=== PATIENT | female | born 1965 | race Two or more races ===

== ENCOUNTER → 2017-04-23 | Outpatient (CLI) | payer OTHER ==
[~2017-04-23] MED LIST: AMIT10TA PO; MELO-184 PO
== END | disposition home or self-care (01) ==
LOC: CFH 07:50 → MERGE 08:15
PROVIDERS: ATTEND Family Medicine
DX: Z12.31 Encounter for screening mammogram for malignant neoplasm of breast (principal); Z13.820 Encounter for screening for osteoporosis
CPT/HCPCS: 77080; G0202

== ENCOUNTER 2017-08-25 19:03 | Emergency (ER) | payer OTHER ==
[~2017-08-25] VITALS: Ht 162.6 cm; Wt 60.6 kg
[~2017-08-25 19:03] MED LIST changes: -MELO-184 PO; +MELO15TA24 PO
[2017-08-25] MEDS ORDERED: SODIUM CHLORIDE 0.9% 1,000ML IVBOLUS ONE (20:30)
[2017-08-25] MEDS ORDERED: DIPHENHYDRAMINE 50 MG/ML, 1ML IVPush ONE (20:30)
[2017-08-25] MEDS ORDERED: METHOCARBAMOL 750 MG TABLET PO ONE (20:30)
[2017-08-25] MEDS ORDERED: ONDANSETRON 2MG/ML, 2ML IVPush ONE ×2 (20:30→22:00)
[2017-08-25] MEDS ORDERED: KETOROLAC 30 MG/1 ML IVPush ONE (20:30)
[2017-08-25] MEDS ORDERED: SODIUM CHLORIDE FLUSH 10ML SYR IVF ONE (20:30)
[2017-08-25 20:32] LABS: HEMATOCRIT 44.4 % (34.6-47.8); HEMOGLOBIN 15.2 g/dL (11.7-16.4)
[2017-08-25 20:39] LABS: BLOOD UREA NITROGEN 13 mg/dL (7-18)
[2017-08-25 20:42] LABS: ASPARTATE AMINO TRANSFERASE 23 U/L (15-37)
[2017-08-25] MEDS ORDERED: MAALOX/HYOSCYAMINE/LIDOCAINE 45 ML BTL PO ONE (22:00)
[2017-08-25 23:19] VITALS: BP 100/54
== END 2017-08-25 23:22 | disposition home or self-care (01) ==
LOC: ED 19:51
DX: R51 Headache (principal); G89.29 Other chronic pain; R10.9 Unspecified abdominal pain; H81.10 Benign paroxysmal vertigo, unspecified ear; Z90.49 Acquired absence of other specified parts of digestive tract; Z90.710 Acquired absence of both cervix and uterus; Z90.721 Acquired absence of ovaries, unilateral
CPT/HCPCS: 36415; 80053; 81003; 85025; 96361; 96374; 96375; 96376; 99285; J1200; J1885; J2405; J7030

== ENCOUNTER 2018-05-04 07:07 | Emergency (ER) | payer OTHER ==
[~2018-05-04] VITALS: Ht 162.6 cm; Wt 59.3 kg
[2018-05-04] MEDS ORDERED: VENL37.57 PO (07:36)
[2018-05-04] MEDS ORDERED: OMEP-110 PO (07:36)
[2018-05-04] MEDS ORDERED: METOCLOPRAMIDE 5 MG/ML, 2ML IM PRN (08:00)
[2018-05-04] MEDS ORDERED: DIPHENHYDRAMINE 50 MG/ML, 1ML IM ONE (08:00)
[2018-05-04 08:04] LABS: BASOPHILS # (AUTO) 0.03 x10^3/uL (0-0.1); BASOPHILS % (AUTO) 1 % (0-1); EOSINOPHILS # (AUTO) 0.07 x10^3/uL (0-0.4); EOSINOPHILS % (AUTO) 2 % (1-7); LYMPHOCYTES # (AUTO) 1.83 x10^3/uL (1-3.4); LYMPHOCYTES % (AUTO) 38 % (22-44); MD NO; MEAN CORPUSCULAR HEMOGLOBIN 33.3 pg (27.0-34.8); MEAN CORPUSCULAR HGB CONC 34.2 g/dL (32.4-35.8); MEAN CORPUSCULAR VOLUME 97.4 fL (80-100); MEAN PLATELET VOLUME 9.4 fL (7.4-10.4); MONOCYTES # (AUTO) 0.49 x10^3/uL (0.2-0.8); MONOCYTES % (AUTO) 10 % (2-9); NEUTROPHILS # (AUTO) 2.35 x10^3/uL (1.8-6.8); NEUTROPHILS % (AUTO) 49 % (42-75); PLATELET COUNT 236 x10^3/uL (130-400); RED BLOOD COUNT 4.48 x10^6/uL (3.82-5.3); RED CELL DISTRIBUTION WIDTH 12.5 % (9.6-15.2)
[2018-05-04 08:18] LABS: ALANINE AMINOTRANSFERASE 19 U/L (12-78); ALBUMIN 3.9 g/dL (3.4-5.0); ANION GAP 7 mmol/L (5-15); CALCIUM 8.8 mg/dL (8.5-10.1); CHLORIDE 108 mmol/L (98-107); CREATININE 0.79 mg/dL (0.55-1.02)
[2018-05-04 08:20] LABS: ALKALINE PHOSPHATASE 74 U/L (45-117); BILIRUBIN,TOTAL 0.4 mg/dL (0.2-1.0)
[2018-05-04] MEDS ORDERED: DIPHENHYDRAMINE 50 MG/ML, 1ML ONE (08:44)
[2018-05-04] MEDS ORDERED: METOCLOPRAMIDE 5 MG/ML, 2ML ONE (08:44)
[2018-05-04 10:01] LABS: MICROSCOPIC AUTO
[2018-05-04 10:06] LABS: CULTURE INDICATED? YES
[2018-05-04] MEDS ORDERED: MAALOX/HYOSCYAMINE/LIDOCAINE 45 ML BTL ONE (10:25)
[2018-05-04] MEDS ORDERED: KETOROLAC 30 MG/1 ML ONE (10:25)
[2018-05-04] MEDS ORDERED: KETOROLAC 30 MG/1 ML IM ONE (10:30)
[2018-05-04] MEDS ORDERED: MAALOX/HYOSCYAMINE/LIDOCAINE 45 ML BTL PO ONE (10:30)
[2018-05-04 10:31] VITALS: BP 132/80
== END 2018-05-04 10:33 | disposition home or self-care (01) ==
LOC: ED 09:13
DX: G43.909 Migraine, unspecified, not intractable, without status migrainosus (principal); K21.9 Gastro-esophageal reflux disease without esophagitis; G89.29 Other chronic pain; R63.0 Anorexia
CPT/HCPCS: 36415; 74022; 80053; 81001; 83690; 85025; 87086; 96372; 99285; J1200; J1885; J2765

== ENCOUNTER → 2018-08-24 | Outpatient (CLI) | payer OTHER ==
[~2018-08-24] MED LIST changes: +OMEP-110 PO; +VENL37.57 PO
== END | disposition home or self-care (01) ==
LOC: CFH 08:10
PROVIDERS: ATTEND Family Medicine
DX: Z12.31 Encounter for screening mammogram for malignant neoplasm of breast (principal); R92.2 Inconclusive mammogram
CPT/HCPCS: 77063; 77067

== ENCOUNTER → 2018-08-24 | Outpatient (CLI) | payer OTHER | END | disposition home or self-care (01) | LOC: RAD 09:01 | PROVIDERS: ATTEND Family Medicine | DX: M79.671 Pain in right foot (principal) ==

== ENCOUNTER → 2018-10-03 | Outpatient (CLI) | payer OTHER | END | disposition home or self-care (01) | LOC: CFH 06:59 | PROVIDERS: ATTEND Family Medicine | DX: R16.0 Hepatomegaly, not elsewhere classified (principal); Z90.710 Acquired absence of both cervix and uterus; Z90.721 Acquired absence of ovaries, unilateral | CPT/HCPCS: 76700; 76830 ==

== ENCOUNTER 2019-09-18 08:16 | Emergency (ER) | payer OTHER ==
[~2019-09-18] VITALS: Ht 165.1 cm; Wt 63.3 kg
--- NOTE | 2019-09-18 08:51 | NUR ---
FIRST CONTACT WITH PT. PT C/O SEVERE DOTY WITH CHEST & BACK PAIN WHEN I BREATH SINCE LAST NIGHT AFTER TAKING SUDAFED, SORE THROAT SINCE FRI; HX PNA THIS YR. PT'S AOX4. RESPS EVEN AND UNLABORED. BP/SPO2 MONITORS IN PLACE. CALL LIGHT WITHIN REACH. PA AT BEDSIDE TO EVALUATE AT THIS TIME.
[2019-09-18] MEDS ORDERED: KETOROLAC 30 MG/1 ML IM ONE (09:00)
[2019-09-18] MEDS ORDERED: ACETAMINOPHEN 500 MG TABLET PO ONE (09:00)
--- NOTE | 2019-09-18 09:01 | NUR ---
PT TO XRAY AT THIS TIME.
[2019-09-18] MEDS ORDERED: ACETAMINOPHEN 500 MG TABLET ONE (09:04)
[2019-09-18] MEDS ORDERED: KETOROLAC 30 MG/1 ML ONE (09:04)
--- NOTE | 2019-09-18 09:05 | NUR ---
PT BACK TO ROOM FROM XRAY AT THIS TIME.
--- NOTE | 2019-09-18 09:09 | NUR ---
PT MEDICATED PER EMAR. PT TOLERATED WELL. PT'S AOX4. RESPS EVEN AND UNLABORED.
[2019-09-18 09:19] LABS: RAPID INFLUENZA A Negative (Negative); RAPID INFLUENZA B Negative (Negative)
[2019-09-18] MEDS ORDERED: DIPHENHYDRAMINE 50 MG/ML, 1ML ONE (09:59)
[2019-09-18] MEDS ORDERED: METOCLOPRAMIDE 5 MG/ML, 2ML ONE (09:59)
[2019-09-18] MEDS ORDERED: METOCLOPRAMIDE 5 MG/ML, 2ML IM ONE (10:00)
[2019-09-18] MEDS ORDERED: DIPHENHYDRAMINE 50 MG/ML, 1ML IM ONE (10:00)
--- NOTE | 2019-09-18 10:06 | NUR ---
PT MEDICATED PER EMAR. PT TOLERATED WELL. PT'S AOX4. RESPS EVEN AND UNLABORED.
[2019-09-18 11:02] VITALS: BP 102/69
--- NOTE | 2019-09-18 11:03 | NUR ---
Patient given discharge instructions and they have confirmed that they understand the instructions. Patient ambulatory with steady gait.
== END 2019-09-18 11:04 | disposition home or self-care (01) ==
LOC: ED 10:46
DX: J02.8 Acute pharyngitis due to other specified organisms (principal); B34.9 Viral infection, unspecified; J01.90 Acute sinusitis, unspecified; K21.9 Gastro-esophageal reflux disease without esophagitis; G43.909 Migraine, unspecified, not intractable, without status migrainosus
CPT/HCPCS: 71046; 87081; 87400; 87880; 93005; 99284; J1200; J1885; J2765

== ENCOUNTER 2020-06-02 17:36 | Emergency (ER) | payer OTHER ==
[~2020-06-02] VITALS: Ht 165.1 cm; Wt 65.2 kg
[2020-06-02] MEDS ORDERED: ACETAMINOPHEN 500 MG TABLET ONE (18:13)
--- NOTE | 2020-06-02 18:22 | NUR ---
PT CAME BACK FROM [place] TODAY AND IS NOW EXPERIENCING SOB, SORE THROAT, AND ITCHY/PAIN RIGHT EAR.
--- NOTE | 2020-06-02 18:25 | NUR ---
/ADMINISTERED TYLENOL TO THE PT. AWAITING SUDAFED FROM PHARMACY. CHEST/THROAT PAIN IS 7/10.
[2020-06-02] MEDS ORDERED: PSEUDOEPHEDRINE 30 MG TABLET PO PRN (18:30)
[2020-06-02] MEDS ORDERED: ACETAMINOPHEN 500 MG TABLET PO ONE (18:30)
--- NOTE | 2020-06-02 18:50 | NUR ---
HAND OFF GIVEN TO VAN YAÑEZ.
[2020-06-02 19:23] VITALS: BP 125/64
== END 2020-06-02 19:26 | disposition home or self-care (01) ==
LOC: ED 18:33
DX: B34.9 Viral infection, unspecified (principal); R09.81 Nasal congestion; J02.9 Acute pharyngitis, unspecified; Z20.828 Contact with and (suspected) exposure to other viral communicable diseases; H92.01 Otalgia, right ear; K21.9 Gastro-esophageal reflux disease without esophagitis; Z90.89 Acquired absence of other organs; Z90.49 Acquired absence of other specified parts of digestive tract; Z90.710 Acquired absence of both cervix and uterus; Z90.721 Acquired absence of ovaries, unilateral
CPT/HCPCS: 36415; 87635; 93005; 99284

== ENCOUNTER 2020-09-19 10:07 | Outpatient (CLI) | payer OTHER | END 2020-09-19 23:59 | disposition home or self-care (01) | LOC: CFH 10:07 | PROVIDERS: ATTEND Family Medicine | DX: Z12.31 Encounter for screening mammogram for malignant neoplasm of breast (principal); Z12.39 Encounter for other screening for malignant neoplasm of breast | CPT/HCPCS: 76641; 77063; 77067 ==